=== PATIENT | female | born 1985 | race Caucasian/White ===

== ENCOUNTER → 2023-11-08 15:47 | Outpatient (REF) | payer OTHER, SELFPAY | LOC: HWRAD 15:47 | PROVIDERS: ATTENDING PHYSICIAN Otolaryngology; FAMILY PHYSICIAN Family Medicine | DX: H90.71 Mixed conductive and sensorineural hearing loss, unilateral, right ear, with unrestricted hearing on the contralateral side (principal) | CPT/HCPCS: 70480 ==